=== PATIENT | female | born 1950 | race Caucasian/White ===

== ENCOUNTER 2017-10-27 07:15 | Observation (INO) | payer OTHER ==
[~2017-10-27 07:15] MED LIST: ROPIVACAINE 0.2% 80 MG, EPINEPHrine 0.2 MG, KETOROLAC TROMETHAMINE 30 MG in SYRINGE 0 ML IU ONE; TRANEXAMIC ACID 3,000 MG in NS 50 ML IRR ONE
[2017-10-27] MEDS ORDERED: TRANEXAMIC ACID 3,000 MG/50 ML BAG IRR ONE (09:03)
[2017-10-27] MEDS ORDERED: VANCOMYCIN 1 GM VIAL ONE (09:03)
[2017-10-27] MEDS ORDERED: ceFAZolin 2 GM/SWFI 2 GM/20 ML SYR IVP ONE (10:28)
[2017-10-27] MEDS ORDERED: FAMOTIDINE 20 MG TAB PO ONE (10:28)
[2017-10-27] MEDS ORDERED: DEXAMETHASONE 4 MG/ML VIAL IVP ONE (10:28)
[2017-10-27] MEDS ORDERED: LR 1,000 ML IV ONE (10:33)
[2017-10-27] MEDS ORDERED: LIDOCAINE 1% 2 ML INJ ID PRN (10:33)
[2017-10-27] MEDS ORDERED: LIDOCAINE 1% 2 ML INJ ONE (10:36)
--- NOTE | 2017-10-27 11:27 | PDHPUP ---
History & Physical Update H&P update statement: This history and physical update is based on an assessment of the patient which was completed after admission or registration (within 24 hours), but prior to the surgery/procedure. H&P update: H&P reviewed & patient examined, no change in patient's condition since H&P completed
[2017-10-27] MEDS ORDERED: MIDAZOLAM 2 MG/2 ML VIAL IVP ONE (12:03)
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
[2017-10-27] MEDS ORDERED: PROPOFOL 200 MG/20 ML VIAL ONE ×2 (12:15→13:09)
[2017-10-27] MEDS ORDERED: DEXAMETHASONE 4 MG/ML VIAL ONE ×2 (12:16)
[2017-10-27] MEDS ORDERED: BUPIVACAINE/EPI 0.5% 30 ML SDV ONE (13:20)
[2017-10-27] MEDS ORDERED: NALOXONE HCL 0.4 MG/ML INJ IVP PRN (13:25)
[2017-10-27] MEDS ORDERED: LR 500 ML IV PRN (13:35)
[2017-10-27] MEDS ORDERED: HYDROCODONE/APAP 5/325 TAB PO PRN (13:35)
[2017-10-27] MEDS ORDERED: ONDANSETRON 4 MG/2 ML VIAL IVP PRN ×2 (13:35→14:01)
[2017-10-27] MEDS ORDERED: LABETALOL HCL 5 MG/ML 20 ML MDV IVP PRN (13:35)
[2017-10-27] MEDS ORDERED: PROMETHAZINE HCL 25 MG/ML INJ IVP PRN ×2 (13:35→14:01)
--- NOTE | 2017-10-27 14:00 | POSTOPPROG ---
Post Op Note Date of Operation: 10/27/17 Surgeon: Pau Redding Timber Selector: darshana redding Anesthesiologist: dr. finley Anesthesia: Spinal, Other (Specify) (adductor canal block) Pre-op Diagnosis: right knee OA Post-op Diagnosis: same Indication: right knee pain due to OA that failed conservative measures Procedure: R TKA Findings: severe knee OA Inf/Abcess present in the surg proc area at time of surgery?: No EBL: 50-100
[2017-10-27] MEDS ORDERED: DIPHENOXYLATE/ATROPINE LOMOTIL 1 TAB PO PRN (14:01)
[2017-10-27] MEDS ORDERED: ONDANSETRON DISINTEGRATING 4 MG TAB PO PRN (14:01)
[2017-10-27] MEDS ORDERED: CYCLOBENZAPRINE 10 MG TAB PO PRN (14:01)
[2017-10-27] MEDS ORDERED: TEMAZEPAM 15 MG CAP PO PRN (14:01)
[2017-10-27] MEDS ORDERED: MAGNESIUM HYDROXIDE 30 ML UDCUP PO PRN (14:01)
[2017-10-27] MEDS ORDERED: POLYETHYLENE GLYCOL 3350 17 GM PKT PO PRN (14:01)
[2017-10-27] MEDS ORDERED: diphenhydrAMINE 25 MG CAP PO PRN (14:01)
[2017-10-27] MEDS ORDERED: PROMETHAZINE HCL 25 MG SUPPR PR PRN (14:01)
[2017-10-27] MEDS ORDERED: METOCLOPRAMIDE 10 MG/2 ML VIAL IVP PRN (14:01)
[2017-10-27] MEDS ORDERED: LACTULOSE 20 GM/30 ML UDCUP PO PRN (14:01)
[2017-10-27] MEDS ORDERED: BISACODYL 10 MG SUPP PR PRN (14:01)
[2017-10-27] MEDS ORDERED: ONDANSETRON 4 MG/2 ML VIAL ONE (14:06)
--- NOTE | 2017-10-27 14:21 | POSTANESTH ---
Post Anesthetic Evaluation Cardiovascular Status: Normal, Stable, Similar to Pre-Op Cond Respiratory Status: Normal, Stable, Similar to Pre-op Cond. Level of Consciousness/Mental Status: Can Participate in Eval, Alert and Oriented Pain Control: Adequate, Prn Tx Ordered Nausea/Vomiting Control: Adequate, Prn Tx Ordered Complications Possibly Related to Anesthesia: None Noted
[2017-10-27] MEDS ORDERED: LR 1,000 ML IV SCH (14:30)
[2017-10-27] MEDS: HYDROCODONE/APAP 10/325 TAB PO PRN (19:42)
[2017-10-27] MEDS: SENNOSIDES/DOCUSATE SODIUM TAB PO SCH (20:05)
[2017-10-27] MEDS: FAMOTIDINE 20 MG TAB PO SCH (20:05)
[2017-10-27] MEDS: PREGABALIN 75 MG CAP PO SCH (20:06)
[2017-10-27] MEDS: ASPIRIN 81 MG CHEWABLE TAB PO SCH (20:06)
[2017-10-27] MEDS: ceFAZolin 2 GM/DEXTROSE 100 ML IV SCH (22:56)
[2017-10-28] MEDS: ceFAZolin 2 GM/DEXTROSE 100 ML IV SCH (04:18)
--- NOTE | 2017-10-28 05:26 | GOP ---
[f rep st] OPERATIVE REPORT DATE OF OPERATION: 10/27/2017 SURGEON: Rodney Stanley MD INCUBATOR MACHINE OPERATOR: АННА Caballero. ANESTHESIA: Spinal. PREOPERATIVE DIAGNOSIS: Right knee osteoarthritis. POSTOPERATIVE DIAGNOSIS: Right knee osteoarthritis. PROCEDURE PERFORMED: Right total knee arthroplasty. FINDINGS: ESTIMATED BLOOD LOSS: 30 mL. INDICATIONS: This is a 67-year-old female with severe and progressive pain and deformity of the righ t knee unresponsive to conservative care. Risks and benefits of the surgical intervention were expla ined in detail. DESCRIPTION OF PROCEDURE: The patient was brought to the operative room and placed on the table in t he supine position. Spinal anesthesia was induced without difficulty. A pneumatic tourniquet was ap plied about the right proximal thigh, and the leg was prepped and draped in a sterile fashion. The l eg becker was applied. After exsanguination by elevation the tourniquet was inflated to 275 mm of me rcury. Incision was made anterior medial from the tibial tuberosity to a point 2 cm proximal to the superior pole of the patella. Medial parapatellar arthrotomy was carried out from the superior pole of the p atella and posteriorly in line with the fibers of the Type 2 VMO. The medial collateral ligament was elevated and the infrapatellar fat pad was resected. Pathology was severe medial and patellofemoral osteoarthritis. The patella was everted and the articular surface was excised. A 35 mm patellar button was placed. T he distal femoral guide hole was drilled and the 6 degree alignment yuridia was placed. A 10 mm distal f emoral cut was made without difficulty. Attention was turned to the tibia and a standard 10 mm cut based on the lateral tibial condyle was pe rformed. The tibial articular surface was excised without difficulty. Attention was turned back to the femur and a size 3 Triathlon femoral cutting block was positioned. Anterior, posterior, and chamfer cuts were made, followed by the intercondylar box cut. The knee was extended and the remnants of the medial and lateral meniscus were excised. The posterio r capsule was injected with ropivacaine, epinephrine and Toradol. A size 3 tibial tray was positione d. Trial reduction was then carried out. There was excellent range of motion, alignment, and stabil ity using the 13 mm polyethylene. All trials were then removed. The joint was thoroughly irrigated and carefully dried. Two packages of cement and 2 grams of vancomycin were mixed in the vacuum mixer and placed on the fixation surface s of all surfaces of the components. The components were implanted and all excess cement was thoroug hly removed. The permanent 13 mm polyethylene was placed without difficulty. The tourniquet was deflated and all bleeders were coagulated. The wound was thoroughly irrigated and closed using interrupted sutures of 2-0 Vicryl for the joint capsule. The subcu was closed with 3-0 Vicryl and the skin with 4-0 Monocryl. Dermabond and Steri-Strips were applied followed by a compre ssive dressing. The patient was then moved from the operating room to the recovery room in good cond ition, having tolerated the procedure well. /[id number]/MODL
[2017-10-28] MEDS: HYDROCODONE/APAP 10/325 TAB PO PRN ×2 (06:31→12:27)
[2017-10-28 07:15] VITALS: BP 147/80; PULSE 68; RESP 16; TEMP 97.6; O2SAT 92
[2017-10-28] MEDS ORDERED: PANTOPRAZOLE SODIUM 40 MG TAB PO SCH (09:00)
[2017-10-28] MEDS ORDERED: NON-FORMULARY NEW DRUG (Esomeprazole Magnesium [Nexium] 20 MG) PO SCH (09:00)
[2017-10-28] MEDS ORDERED: FERROUS SULFATE 325 MG TAB PO SCH (09:00)
[2017-10-28] MEDS ORDERED: ENALAPRIL MALEATE 10 MG TAB PO SCH (09:00)
[2017-10-28] MEDS: PREGABALIN 75 MG CAP PO SCH (09:27)
[2017-10-28] MEDS: ASPIRIN 81 MG CHEWABLE TAB PO SCH (09:28)
[2017-10-28] MEDS: FAMOTIDINE 20 MG TAB PO SCH (09:28)
[2017-10-28] MEDS: SENNOSIDES/DOCUSATE SODIUM TAB PO SCH (09:28)
--- NOTE | 2017-10-28 12:21 | SOAPPROG ---
SOAP Progress Note Assessment/Plan: Assessment: Patient is doing well s/p R TKA pain is well controlled on [place] VTE ppx: recommend ASA 81 mg BID anemia: level expected initially postop d/c planning: d/c to home Plan: 10/28/17 12:20 Subjective: Rosana is doing well today, denies SOB, chest pain and N/V. Objective: Vital Signs Temp Pulse Resp BP Pulse Ox 36.4 C 68 16 147/80 H 92 10/28/17 07:14 10/28/17 07:14 10/28/17 07:14 10/28/17 07:14 10/28/17 07:14 Laboratory Results 10/28/17 04:16 10/27/17 10/28/17 10/29/17 05:59 05:59 05:59 Intake Total 2200 Output Total 500 Balance 1700 RLE: incision dressing is clean and dry, NVI, +pf/df ICD10 Worksheet Patient Problems: Problems Problem Status Onset Primary localized osteoarthritis of right knee Acute
--- NOTE | 2017-10-28 13:32 | GDS ---
[f rep st] DISCHARGE SUMMARY ADMISSION DIAGNOSIS: Right knee osteoarthritis. DISCHARGE DIAGNOSIS: Right knee osteoarthritis. PROCEDURE: Right total knee arthroplasty VTE PROPHYLAXIS: Recommend aspirin 81 mg twice daily for 4 weeks. BRIEF DESCRIPTION OF HOSPITAL STAY: Patient was admitted for an elective joint arthroplasty. The pa leont tolerated the procedure well and has passed physical therapy. The patient was given appropriat e antibiotic prophylaxis and venous thromboembolism prophylaxis. The patient's pain was well control led on oral pain medication, patient was holding down food, and had urinated. Decision was made to d ischarge the patient. The patient was given post-operative prescriptions pre-operatively. PLAN: To follow up as scheduled at Dr. Stanley's office in 3 weeks. /[id number]/MODL
--- NOTE | 2017-10-28 14:21 | ASDISCHSUM ---
Discharge Information Plan Status:Home with No Needs Medically Cleared to Leave: Discharge Date:10/28/2017 02:16 PM CM D/C Disposition:Home, Routine, Self-Care ADT D/C Disposition:Home, Routine, Self-Care Projected Discharge Date:10/28/2017 02:16 PM Transportation at D/C: Discharge Delay Reason: Follow-Up Date:10/28/2017 02:16 PM Discharge Slot: Final Diagnosis: Placement Information Patient Contact Information Contact Name:WINDY Relationship: Address:[address] [place] [address] City:[place] Alternate Phone: [facility]/Zip Code:[place] [address] Email: Financial Information Financial Class: Primary Plan Desc:MEDICARE OUTPATIENT Primary Plan Number:[id number] Secondary Plan Desc:[employer] PPO Secondary Plan Number:[id number] Assessment Information CM Mds Rn Assessment CJR Did you go to joint Answers: No (why?) Notes: Patient will be watchin g class? the online video CM Note CM Note Notes: Rosana is a 67 year-old woman who is planning to discharge home with the support of her . She said that Dr. Stanley did not recommend any home therapies or SNF. She is planning to watch the online video tomorrow and obtain all needed mobility equipment. Date Signed: 10/20/2017 11:54 AM Electronically Signed By:Eboni Michel Intervention Information Intervention Type:*GARCIA-Signed Date of Service:10/28/2017 12:00 PM Patient Type:Observation Staff Member:Eboni Michel Hours: Discipline: Severity: Comment:
== END 2017-10-28 14:16 | disposition home or self-care (01) ==
LOC: F3E 09:46 → INTOOBSV 09:46 → F3N 10:29
PROVIDERS: ADMIT Orthopaedic Surgery; ATTEND Orthopaedic Surgery
PROC: 0SRC0J9 Replacement of Right Knee Joint with Synthetic Substitute, Cemented, Open Approach (ICD-10-PCS; principal; 2017-10-27 12:15)
DX: M17.11 Unilateral primary osteoarthritis, right knee (principal); M25.561 Pain in right knee; I10 Essential (primary) hypertension; M79.7 Fibromyalgia; K21.9 Gastro-esophageal reflux disease without esophagitis; K44.9 Diaphragmatic hernia without obstruction or gangrene; Z87.442 Personal history of urinary calculi
CPT/HCPCS: 27447; 73560; 88311; 97161; 97165; C1776; G8978; G8979; G8980; G8987; G8988; G8989; J0171; J0690; J1100; J1885; J2250; J2405; J2704; J2795; J2550; J3370